=== PATIENT | female | born 1985 | race Hispanic/Latino ===

== ENCOUNTER 2018-01-15 00:02 | Inpatient (IN) | payer OTHER ==
[~2018-01-15] VITALS: Ht 165.1 cm; Wt 59.0 kg
--- NOTE | 2018-01-15 00:12 | ED PSYCHIATRIC COMPLAINT ---
See Addendum History of Present Illness General Chief Complaint: Psychiatric Related Complaint Stated Complaint: +ETOH/SI Source: patient, family Exam Limitations: intoxication Vital Signs & Intake/Output Vital Signs & Intake/Output Vital Signs Date Time Temp Pulse Resp B/P B/P Pulse O2 O2 Flow FiO2 Mean Ox Delivery Rate 01/16 0608 96.9 62 18 101/61 98 Room Air 01/16 0001 97.9 62 16 105/76 97 Room Air Room Air 01/15 2007 97.6 84 18 128/82 95 Room Air 01/15 1841 98.8 54 20 127/84 99 Room Air 01/15 1557 98.3 59 20 119/79 98 01/15 1116 98.2 67 20 118/83 99 Room Air 01/15 1106 98 Room Air 01/15 0828 98.4 76 18 138/88 98 Room Air ED Intake and Output 01/16 0000 01/15 1200 Intake Total Output Total 300 Balance -300 Output, Urine 300 Patient 130 lb Weight Weight Estimated Measurement Method Allergies Coded Allergies: No Known Allergies (01/15/18) Triage Note: PT BIBA FROM HOME C/O ETOH/+SI. PT ARRIVED LETHARGIC AND INTOXICATED. PER EMS PT WAS AT HOME TONIGHT DRINKING HENESSEY "2 LARGE CUPS" AND TOOK ABOUT 10 FIORICET PILLS. PT ARRIVED WITH A #20 IN [facility]. PT WANDED AND CHANGED INTO PAPER SCRUBS. BSG PRIOR TO ARRIVAL 109. PT A&0X1. Triage Nurses Notes Reviewed? yes Onset: Abrupt Duration: hour(s): Timing: recent history HPI: 01/15/18 1 AM 32-year-old female presents to the emergency department for alcohol depression and suicidal ideation. According to EMS and the patient's sister, her mother has recently . Tonight she had 2 tall alcoholic beverages and took an unknown quantity of Fioricet. She admits to suicidal ideation but she is obviously intoxicated. Poison control was consulted. (Oj Deluca DO) Past History Travel History Traveled to [place] past 21 day No Medical History Any Pertinent Medical History? see below for history Psychiatric: depression Surgical History Surgical History: non-contributory Family History Hx Contributory? No (Oj Deluca DO) Review of Systems Review of Systems Constitutional: Denies: fever. EENTM: Denies: visual changes. Respiratory: Denies: short of breath. Cardiovascular: Denies: chest pain. GI: Denies: abdominal pain. Genitourinary: Reports: no symptoms. Musculoskeletal: Reports: no symptoms. Skin: Reports: no symptoms. Neurological/Psychological: Reports: depressed. Hematologic/Endocrine: Reports: no symptoms. Immunologic/Allergic: Reports: no symptoms. (Oj Deluca DO) Physical Exam Physical Exam General Appearance: well developed/nourished, awake, anxious, moderate distress Head: atraumatic, normal appearance Eyes: Bilateral: normal appearance, PERRL, EOMI. Ears, Nose, Throat: normal pharynx, normal ENT inspection Neck: normal inspection, supple, full range of motion Respiratory: normal breath sounds, chest non-tender, no respiratory distress Cardiovascular: regular rate/rhythm Gastrointestinal: non-tender Extremities: normal range of motion Neurological/Psychiatric: anxious Appearance/Memory/Insight: disheveled Behavoir/Eye Contact/Speech: belligerent Thoughts/Hallucinations: no apparent hallucination Skin: intact, normal color, warm/dry SAD PERSONS SAD PERSONS Response Value Depression/Hopelessness? yes 2 Previous Attempts/Psych Care yes 1 Excessive Ethanol/Drug Use? yes 1 Rational Thinking Loss? yes 2 Single//? yes 1 Organized/Serious Attempt yes 2 Social Support? has support 0 Stated Future Intent? yes 2 Total 11 SAD PERSONS Done? yes (Oj Deluca DO) Progress Differential Diagnosis: drug intoxication, drug overdose, drug withdrawal, depression Plan of Care: Orders Procedure Date/time Status Continuous Observation Monitor 01/15 1900 Active Continuous Observation Monitor 01/15 1500 Active Restraint- Discontinue 01/15 1103 Active Continuous Observation Monitor 01/15 1100 Active Continuous Observation Monitor 01/15 0700 Active Initial ED EKG: NSR, nonspecific ST T wave chg Comments: 01/15/18 Labs were ordered. Sitter was ordered. Crisis consultation in the a.m. when sober; the patient will be signed out to Dr. Dalton at 7 AM, (Oj Deluca DO) Hand-Off Endorsed To: Oj Gore MD Endorsed Time: 1899 Pending: other (bed search) (Aaron Dalton MD) Comments: 01/15/2018 7:16:16 PM pt signed out to me by dr dalton at shift changeover. 01/16/2018 6:56:44 AM patient signed out to Dr. Dalton at shift changer fixer after an uneventful emergency department stay overnight (Sofía JAQUEZ,Oj Arauz) Departure Departure Disposition: STILL A PATIENT Condition: Stable Departure Forms: Customer Survey General Discharge Information Comments 01/15/18 5:30 AM 4 hour Tylenol level is normal Patient is pending evaluation by crisis The patient will be signed out to Dr. Dalton at 7 AM (Oj Deluca DO) Departure Clinical Impression Primary Impression: Depression Secondary Impressions: Alcohol abuse, Drug overdose (Aaron Dalton MD) (Oj Gore MD) Departure Departure Disposition: STILL A PATIENT Condition: Stable Departure Forms: Customer Survey General Discharge Information Comments 01/15/18 5:30 AM 4 hour Tylenol level is normal Patient is pending evaluation by crisis The patient will be signed out to Dr. Dalton at 7 AM (Oj Deluca DO) Departure Clinical Impression Primary Impression: Depression Secondary Impressions: Alcohol abuse, Drug overdose (Aaron Dalton MD)
[2018-01-15 01:05] LABS: ABSOLUTE BASOPHIL COUNT 0 /CUMM (0.0-0.2); ABSOLUTE EOSINOPHIL COUNT 0 /CUMM (0.0-0.7); ABSOLUTE GRANULOCYTE CT 2.2 /CUMM (1.4-6.5); ABSOLUTE LYMPH COUNT 1.5 /CUMM (1.2-3.4); ABSOLUTE MONOCYTE COUNT 0.4 /CUMM (0.10-0.60); BASOPHIL % 0.7 % (0.0-2.0); EOSINOPHIL % 0.3 % (0-5); GRANULOCYTE % 53.1 % (42.2-75.2); MEAN CORPUSCULAR HGB 29.5 PG (27.0-31.0); MEAN CORPUSCULAR HGB CONC 34.2 G/DL (33.0-37.0); MEAN CORPUSCULAR VOLUME 86.3 FL (81.0-99.0); MEAN PLATELET VOLUME 6.8 FL (7.4-10.4); PLATELET COUNT 402 /CUMM (130-400); WHITE BLOOD CELL COUNT 4.1 /CUMM (4.8-10.8)
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
[2018-01-16 16:32] VITALS: BP 118/71
[2018-01-16 16:58] VITALS: BP 118/71
[2018-01-16 22:07] VITALS: BP 106/62
[2018-01-17] VITALS (13 sets, daily range): BP systolic 102–134; BP diastolic 53–75
--- NOTE | 2018-01-17 13:05 | History & Physical ---
General Information and HPI MD Statement: I have seen and personally examined PASHA THOMSON and documented this H& P. The patient is a 32 year old F who presented with a patient stated chief complaint of "I want to be " "I just want to be with my mom again". Source of Information: patient, family, EMS Exam Limitations: unable to give history History of Present Illness: 32-year-old female was brought in by ambulance from home complaining of alcohol and positive suicidal ideations. She arrived lethargic and intoxicated. Per EMS the patient was at home drunk "2 large cups of Lili" and took approximately 10 Fioricet pills mother recently which might be part of the stressors. For all those reasons she is admitted for evaluation and treatment Allergies/Medications Allergies: Coded Allergies: No Known Allergies (01/15/18) Compliance With Home Meds: UNKNOWN Past History Travel History Traveled to [place] past 21 day No Medical History Neurological: NONE EENT: NONE Cardiovascular: NONE Respiratory: NONE Gastrointestinal: NONE Hepatic: NONE Renal: NONE Musculoskeletal: NONE Psychiatric: depression Endocrine: NONE Blood Disorders: NONE Cancer(s): NONE DIVER PUMPER/Reproductive: NONE Isolation History: Standard Surgical History Surgical History: non-contributory Past Family/Social History Psychosocial History ETOH Use: heavy use Review of Systems Review of Systems Constitutional: Reports: see HPI. Exam & Diagnostic Data Last 24 Hrs of Vital Signs/I&O Vital Signs Date Time Temp Pulse Resp B/P B/P Pulse O2 O2 Flow FiO2 Mean Ox Delivery Rate 01/17 1229 75 124/70 01/17 1217 75 124/70 / 0803 83 122/71 / 0801 97.1 83 122/71 07/03 0534 64 114/63 07/03 0302 60 102/53 07/03 0056 91 102/74 07/ 2207 70 106/62 07/ 1658 97.8 76 118/71 07/02 1632 97.8 76 118/71 01/16 1537 76 18 118/80 96 Room Air Intake & Output 01/17 1600 07 0800 07 0000 Intake Total Output Total Balance Patient 130 lb Weight Physical Exam General Appearance Alert, Oriented X3, Cooperative, No Acute Distress Skin No Rashes, No Breakdown, A tattoo in the upper chest. HEENT PERRLA, EOMI, Mucous Membr. moist/pink Neck Supple, No JVD, No thryomegaly, +2 Carotid Pulse wo Bruit, No LAD Lymphatic Axillary nl, Cervical nl Cardiovascular Regular Rate, No Murmurs Lungs Clear to Auscultation, Normal Air Movement Abdomen Normal Bowel Sounds, Soft, No Tenderness Neurological Exam Findings: Normal Gait, Normal Speech, Strength at 5/5 X4 Ext, Normal Tone, Sensation Intact, Cranial Nerves 3-12 NL, Reflexes 2+ Cranial Nerves II through XII: Intact Extremities No Cyanosis, No Edema, Normal Pulses Vascular Normal Pulses, Pulses Symmetrical Last 24 Hrs of Labs/Balwinder: Laboratory Tests 01/15/18 0425: Total Bilirubin 0.3, Direct Bilirubin 0.1, AST 18, ALT 25, Alkaline Phosphatase 64, Total Protein 6.5, Albumin 3.2 L, Triglycerides 74, Cholesterol 136, LDL Cholesterol, Calc 76, HDL Cholesterol 46, Cholesterol/HDL Ratio 3, TSH &T3 &Free T4 Intrp 1.220, Acetaminophen 22.0 01/15/18 0055: Anion Gap 13, Estimated GFR > 60, BUN/Creatinine Ratio 15.0, Glucose 87, Hemoglobin A1c 5.1, Calcium 8.9, Total Bilirubin 0.4, AST 21, ALT 26, Alkaline Phosphatase 74, Total Protein 6.9, Albumin 3.4 L, Globulin 3.5, Albumin/ Globulin Ratio 1.0 L, Total Beta HCG NEGATIVE, CBC w Diff NO MAN DIFF REQ, RBC 4.40, MCV 86.3, MCH 29.5, MCHC 34.2, RDW 13.0, MPV 6.8 L, Gran % 53.1, Lymphocytes % 37.1, Monocytes % 8.8, Eosinophils % 0.3, Basophils % 0.7, Absolute Granulocytes 2.2, Absolute Lymphocytes 1.5, Absolute Monocytes 0.4, Absolute Eosinophils 0, Absolute Basophils 0, Salicylates < 1.0, Acetaminophen 55.0 *H, Serum Alcohol 92.0 01/15/18 0034: Urine Opiates Screen < 100, Methadone Screen < 40, Barbiturate Screen > 800 H, Ur Phencyclidine Scrn < 6.00, Amphetamines Screen < 100, U Benzodiazepines Scrn < 85, Urine Cocaine Screen < 50, Urine Cannabis Screen 26.40 Assessment/Plan As Ranked By This Provider Problem List: 1. Depression 2. Drug overdose 3. Alcohol abuse Miscellaneous Miscellaneous Documentation Attending Case Discussed With: Kervin Steel MD Primary Care Physician: Patient Has No Primary Care Patient sees these Specialists Psychiatry Level of Patient Care: Jamie Consults Needed: Consulting Specialty: Psychiatry Consulting Physician: Dr Steel Reason for Consult: depression, SI, alcohol use.
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
--- NOTE | 2018-01-17 16:48 | SOCIAL WORKER PROG NOTE PSYCH ---
Social Work Progress Note Progress Note Yari was very tearful today. She is struggling to understand why God put her on this Earth and why she is still here. She reports lots of stressors that led to her suicide attempt. She feels that he 3 children would be better off without her and that she's useless. She doesn't have any hope left or see options to how she may get out of her current situation. She can't afford her rent, she is struggling to find daycare for her 3 children (11,8,7). She reports her Sisters help her, but she is still struggling. One younger sister lives with her. She also recently experienced the passing of her Mother (not biological). She reported that she has been drinking for many years to numb herself. She acknowledged struggling with depression and other self harm behaviors in the past. She has not gotten treatment and hasn't told anyone in the past that she tried to kill herself. She said she drinks a bottle a wine a night or hard liquor. There seems to be alot of financial stress waying on her currently. She said she can't afford insurance through [employer] and she was denied [facility] a few months ago. They said she made too much money. I told her that I could see if anything could be done to help her with this process and I would be in touch with our business office. Without insurance I am not sure how she will afford tx at aftercare. Encouraged her to focus on her strength's a resiliency at this time.
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
[2018-01-18] VITALS (12 sets, daily range): BP systolic 107–129; BP diastolic 45–86
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
[2018-01-19] VITALS (10 sets, daily range): BP systolic 101–125; BP diastolic 63–74
--- NOTE | 2018-01-19 15:07 | CP SOUTH PROGRESS NOTE PSYCH ---
Psych (Inpt) Progress Note Progress Note Include the following elements, when applicable: Involvement in the active treatment of the patient with behavioral observations of the patient and the patient's response to the treatment. Review of the ongoing treatment process in the context of the treatment plan. Indication of how multi-disciplinary staff members are carrying out the treatment plan. Plans for future interventions and recommendations for revision of the treatment plan. Liaison with other physicians/providers. Progress Note: Dr. Espinoza's note reviewed. Case and treatment plan discussed in team meeting. Staff reports that the patient is denying suicidal ideation. Interactive with peers. Going to groups. CIWA scores are low so we will change CIWA to every 4 hours while awake. Patient seen at 10:58 AM with medical student. Patient was in group prior to meeting with us in office. Reports doing well. Asking about discharge date. Disappointed that I informed her we are planning for Tuesday. Affect is calm and euthymic. Reports acute stressor was breakup on Tuesday with boyfriend of 5 years, Jadiel. States she felt really sad and lonely after the breakup. Reports now she 100% she would not think of hurting herself. Reports mood is good, actually. Reports she had a good night's sleep last night. Rates sad mood 1/10 and anxiety 0/10. Denies feeling hopeless anymore. Denies feeling helpless or worthless. She was feeling guilty but not now. Denies active and passive suicidal ideation. Denies homicidal ideation. Denies auditory and visual hallucinations and paranoid ideation. Describes appetite as eating like a piggy. States she is gaining weight. Energy is pretty good. Tolerating Lexapro but had nausea yesterday and this morning but it cleared. Denies alcohol withdrawal symptoms at this time. IMPRESSION: Slow progress. Continue present treatment plan. We will try to arrange a family meeting. Anticipate likely discharge on Tuesday. We will likely refer patient to [facility] or to [facility] [place].
--- NOTE | 2018-01-19 15:52 | SOCIAL WORKER PROG NOTE PSYCH ---
Social Work Progress Note Progress Note Yari reported feeling alot better today. Less depressed and more hopeful about things. She feels that she turned a corner after experiencing a dream the other night. She described the dream to me, which ultimately ended with a figure in wings saving her. She believes it was a sign from God and that she will always have the support of God. She described her attempt as "selfish", stating she wasn't thinking of her children. She reports having talked with both of her sisters and her ex- in the last couple of days. She feels supported by family and is willing to have a family meeting. She signed a release for both of her sisters. She talked about her ex- and how she has always been empathic or sympathetic to his financial needs and so she never pushed for formal child support. She is reconsidering that choice and is looking to file. She feels she needs to look out for herself and her children. She is hoping she hasn't lost her job at [employer]. She said her Sister has kept in touch with them. I told her we could provide a letter stating she was in the hospital. She primarily works during the day and would be open to IOP, but we need to get past the barrier of not having insurance. She said her kids got approved for [employer], but she didn't. She said she has had state insurance in [place] in the past so she wasn't sure why she wasn't approved. I told her I would follow up with the business office here to see how we might help. Talked about d/c for Tuesday.\\ Called Yoselin ext. [phone] in the business office. Explained the insurance issues. She said she would see if Laya could help her apply, but she doesn't know if she will be in tomorrow. Called Tacho Calhoun Yari's Sister and asked her to come in for a family meeting. She said tomorrow would be good and that she would call her Sister Jyoti to see what works for her and get back to me. They will come in for 11: 45a.
--- NOTE | 2018-01-19 16:50 | SOCIAL WORKER PROG NOTE PSYCH ---
Social Work Progress Note Progress Note The services requested require additional review. You will be contacted regarding the status of this request if further information is needed. An authorization decision will be made within the required timeframes and details of that decision may be found under the member's authorization history. Member Name Member ID Member Subscriber Name Subscriber ID PASHA MAK [id number] PASHA MAK [id number] Pended Authorization # Client Authorization # Type of Request [id number] CONCURRENT Date of Admission/ Start of Services Requested From Submission Date 01/16/2018 01/19/2018 01/19/2018 Level of Service Type of Service Level of Care Type of Care INPATIENT/HLOC [facility] - Inpatient Hospital Reason Code P76 Provider Name & Address Provider ID Provider Alternate ID NPI # for Authorization IMELDA READ [id number] [address] [place] [id number] Message P76 Attached Documents There are no documents attached with this Authorization Request Document Title Document Description Authorization Printing & Downloading Options: (For the best print results, please print in 'Landscape' format) Print the Results page (this page) Print the entire Authorization Request Download the entire Authorization Request Return to the [employer] homepage
[2018-01-20] VITALS (8 sets, daily range): BP systolic 111–124; BP diastolic 52–77
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
--- NOTE | 2018-01-20 13:44 | CP SOUTH PROGRESS NOTE PSYCH ---
Psych (Inpt) Progress Note Progress Note Include the following elements, when applicable: Involvement in the active treatment of the patient with behavioral observations of the patient and the patient's response to the treatment. Review of the ongoing treatment process in the context of the treatment plan. Indication of how multi-disciplinary staff members are carrying out the treatment plan. Plans for future interventions and recommendations for revision of the treatment plan. Liaison with other physicians/providers. Progress Note: Case and treatment plan discussed in team meeting. Staff reports that the patient is denying suicidal ideation. Visible in the milieu. Family meeting was scheduled for 11:45 AM with 2 sisters. Patient seen at 10:43 AM. She was in group prior to meeting with me in office. Reports doing well. Affect is brighter, calm and euthymic. Reports that the medicine is working, making her feel better. Describes mood as "I feel calm." Rates sad mood and anxiety both 0/10. Denies feeling hopeless, stating that she feels a lot stronger. Denies feeling helpless. Denies feeling worthless or guilty. Denies active and passive suicidal ideation. Denies homicidal ideation. Denies auditory and visual halllucinations and paranoid ideation. Reports she slept well last night with use of trazodone. Describes appetite as eating a lot. She was advised to watch her weight and to follow a healthy diet and exercise program while on her medication. Energy is described as "just calm at the moment." States that she can't do much here. She experienced a stomachache last night and took an antacid. Tolerating medications now and denies a stomach problem this morning. Reports ongoing chronic pain at left knee. This can be addressed on an outpatient basis. I attended family meeting with patient, sisters and psychologist social. Patient's and family's questions were addressed. IMPRESSION: Slow progress. Continue present treatment plan. Anticipate discharge on Tuesday to home and sister with referral to [facility] or to [facility].
--- NOTE | 2018-01-20 14:50 | RADIOLOGY REPORT ---
EXAMINATION: XR KNEE, LEFT CLINICAL INFORMATION: 32-year-old female with left knee pain, swelling. COMPARISON: None. TECHNIQUE: Four views of the left knee. FINDINGS: The bony alignment is intact. The cortices are intact. Mild decreased joint space is noted at the medial compartment. There is no joint effusion present. No focal osseous abnormalities. The soft tissues are unremarkable. IMPRESSION: Mild osteoarthrosis at the medial compartment of the left knee.
[2018-01-21 08:33] VITALS: BP 112/65
[2018-01-21 08:34] VITALS: BP 112/65
--- NOTE | 2018-01-21 09:56 | CP SOUTH PROGRESS NOTE PSYCH ---
Psych (Inpt) Progress Note Progress Note Vital Signs Date Time Temp Pulse Resp B/P B/P Pulse O2 O2 Flow FiO2 01/21 1203 73 102/63 01/21 0834 97.1 69 112/65 01/21 0833 97.1 69 112/65 01/21 2000 98.3 67 124/77 01/20 195 98.3 67 124/77 01/20 1540 72 120/64 01/20 1539 72 120/64 No labs in past 24 hours I reviewed patient's record including Kervin Steel MD's notes Reports doing well. Describes mood as "good' affect is bright, Denied anxiety/feels calm Denies feeling hopeless, Denies feeling helpless. Denies feeling worthless Denies wishing or suicidal ideation. Denies homicidal ideation. Denies auditory and visual halllucinations There were no delusions or paranoid ideation. IMPRESSION: 52-year-old who seems to be doing much better and ready for discharge on Tuesday she reported that her mood is good and she looked in very good spirits. Treatment plan update: Continue same medications Anticipate discharge on Tuesday to home and sister with referral to IOP or to [facility].
[2018-01-21 12:03] VITALS: BP 102/63
[2018-01-21 15:48] VITALS: BP 112/62
[2018-01-21 19:15] VITALS: BP 121/68
[2018-01-22 07:37] VITALS: BP 119/73
--- NOTE | 2018-01-22 08:18 | CP SOUTH PROGRESS NOTE PSYCH ---
Psych (Inpt) Progress Note Progress Note Vital Signs Date Time Temp Pulse Resp B/P B/P Pulse O2 O2 Flow FiO2 Mean Ox Delivery Rate 01/22 0737 96.9 75 119/73 01/21 1915 98.8 74 121/68 01/21 1548 65 112/62 No labs in past 24 hours Mental status update: Reports doing well. Describes mood as "good' affect is bright, Denied anxiety/feels calm Denies feeling hopeless, denies feeling helpless, denies feeling worthless, and denies wishing or suicidal ideation. Denies homicidal ideation. Denies auditory and visual halllucinations There were no delusions or paranoid ideation. Assessment: 52-year-old who seems to be doing much better and ready for discharge on Tuesday she reported that her mood is good and she looked in very good spirits. Treatment plan update: Continue same medications Anticipate discharge on Tuesday to home and sister with referral to IOP at [facility] [place].
[2018-01-22 12:19] VITALS: BP 137/68
[2018-01-22 16:01] VITALS: BP 130/75
[2018-01-22 19:33] VITALS: BP 122/81
[2018-01-23 07:56] VITALS: BP 103/30
--- NOTE | 2018-01-23 08:51 | CP SOUTH PROGRESS NOTE PSYCH ---
Psych (Inpt) Progress Note Progress Note error Mental status update: Reports doing well. Describes mood as "good' affect is bright, Denied anxiety/feels calm Denies feeling hopeless, denies feeling helpless, denies feeling worthless, and denies wishing or suicidal ideation. Denies homicidal ideation. Denies auditory and visual halllucinations There were no delusions or paranoid ideation. Assessment: 52-year-old who seems to be doing much better and ready for discharge on Tuesday she reported that her mood is good and she looked in very good spirits. Treatment plan update: Continue same medications Anticipate discharge on Tuesday to home and sister with referral to IOP at [facility].
--- NOTE | 2018-01-23 10:40 | SOCIAL WORKER PROG NOTE PSYCH ---
Social Work Progress Note Progress Note Called [facility] to schedule Yari a primary care appt. She can see Christina Chavez ALEX on February 27 at 2pm at their [facility]. location. Scheduled a 1:15pm intake today for [facility]. Met with Yari who was calm and smiling this morning. She reported feeling very nervous this morning about going home. No negative thoughts assoicated, just anticipatory anxiety. She knows she has alot of work ahead of her. She talked about how a bad experience (attempting suicide) has led her to a postive experience. From being here she sees that her life is not as bad as others. She feels ready to make better choices for herself and her children. She stated she is "grateful" that she is still alive and didn't . Reviewed her follow up appts. with her. She will call her Sister for a ride home today. She will require free indegent meds from the pharmacy before she leaves today, due to her insurance not being active.
[2018-01-23] MEDS ORDERED: LEXAPRO10 M1 PO (10:55)
[2018-01-23] MEDS ORDERED: TRAZODONE HCL100 M1 PO (10:57)
[2018-01-23] MEDS ORDERED: GABAPENTIN300 M2 PO (10:57)
--- NOTE | 2018-01-23 11:49 | Patient Discharge Instructions ---
Psych Discharge Inst General Discharge Information Reason for Admission: Intentional OD with 15-20 Fioricet with alcohol in the context of multiple stressors, acute and chronic. Psy Discharge Primary Diag+ Estuardo depr rec severe Psy Discharge Secondary Diag+ Alcohol use disorder PTSD Summary Tests/Major Procedures Lab ALT 25 U/L 01/15/18 0425 AST 18 U/L 01/15/18 0425 Albumin 3.2 g/dL L 01/15/18 042 Albumin/Globulin Ratio 1.0 % L 01/15/18 005 BUN 9 mg/dL 01/15/18 0055 Carbon Dioxide 23 mmol/L 01/15/18 0055 Chloride 109 mmol/L H 01/15/18 005 Creatinine 0.6 mg/dL 01/15/18 005 Estimated GFR > 60 ml/min 01/15/18 005 Glucose 87 mg/dL 01/15/18 005 Hemoglobin A1c 5.1 % 01/15/18 0055 Potassium 3.5 mmol/L 01/15/18 0055 Sodium 146 mmol/L H 01/15/18 0055 TSH &T3 &Free T4 Intrp 1.220 uIU/mL 01/15/18 0425 Total Beta HCG NEGATIVE 01/15/18 005 Hct 38.0 % 01/15/18 005 Hgb 13.0 G/DL 01/15/18 005 MPV 6.8 FL L 01/15/18 005 Plt Count 402 /CUMM H 01/15/18 0055 WBC 4.1 /CUMM L 01/15/18 0055 Acetaminophen 55.0 ug/mL*H 01/15/18 0055 Acetaminophen 22.0 ug/mL 01/15/18 0425 Barbiturate Screen > 800 NG/ML H 01/15/18 0034 Serum Alcohol 92.0 MG/DL 01/15/18 0055 Urine Cannabis Screen 26.40 NG/ML 01/15/18 0034 SERVICE DATE: 01/20/18- EXAM TYPE: RAD - XRY-KNEE COMPLETE LEFT EXAMINATION: XR KNEE, LEFT CLINICAL INFORMATION: 32-year-old female with left knee pain, swelling. COMPARISON: None. TECHNIQUE: Four views of the left knee. FINDINGS: The bony alignment is intact. The cortices are intact. Mild decreased joint space is noted at the medial compartment. There is no joint effusion present. No focal osseous abnormalities. The soft tissues are unremarkable. IMPRESSION: Mild osteoarthrosis at the medial compartment of the left knee. EKG 01/15/18 showed sinus rhythm @ 65, borderline T abnormalities, anterior leads, no previous tracing, borderline ECG, QT 444, QTc 462. Studies Pending at DC: None. Patient Instructions Contact Information Your Psychiatrist on [facility] was Kervin Steel MD * If you are experiencing an emergency related to this hospitalization, please call [phone] to contact the treating psychiatrist or the psychiatrist-on- call. * To Request a copy of your medical records, please contact the Medical Records Department at [phone]. * To request results of studies pending at the time of discharge, please call [phone]. * Continue your Medications until directed to stop by your Healthcare provider. General Medication Information Please continue to take your new medications and your continued home medications , unless otherwise indicated on your discharge medication list, or unless directed by your MD or RECEIVING LEAD to stop them. Special Instructions Diet Regular Activity Normal Other Inst/Recommendations Stay C&S. See PCP about knee pain, abnormal labs and borderline EKG. - Tobacco Use Treatment Offered Post DC Medications Offered: Not Applicable Post DC Tobacco Treatment Plan: Not Applicable - EtOH/Drug Use D/O Treatment Offered Post DC Medications Offered: Med Not Indicated for D/O Post DC EtOH/SubAbuse TX Plan: [facility] SubAbuse/Dual IOP Program Appt Date: 01/23/18 Program Appt Time: 1315 Metabolic Screening ([x]) Not Applicable, patient not on a neuroleptic. OR () Patient on a neuroleptic(s) . Enter below results for Hemoglobin A1C, and lipid panel if obtained during the last 365 days. BMI: 21.600 Blood Pressure: 103/30 Laboratory Results From [facility] (If applicable): Advance Directives Does the Patient have Medical Advance Directives Yes/Copy not provided Does Pt have Psychiatric Advance Directives? No/Per pt req info provid Does Patient have a Designated Surrogate Decision Maker: Yes Information About Psychiatric Advance Directives Provided? Refused Discharge Plan Post Hospital Treatment Plan: Returning to home and sister.
--- NOTE | 2018-01-23 15:49 | SOCIAL WORKER PROG NOTE PSYCH ---
Social Work Progress Note Faxed Referral(s) Referred To: [facility] Transition of Care Documents sent: Health Summary Faxed to: [facility] Fax #: [phone] Faxed by: Halley Burdick Date faxed: 01/23/18 Time Faxed: [phone]
--- NOTE | 2018-01-23 16:12 | CP SOUTH PROGRESS NOTE PSYCH ---
Psych (Inpt) Progress Note Progress Note Include the following elements, when applicable: Involvement in the active treatment of the patient with behavioral observations of the patient and the patient's response to the treatment. Review of the ongoing treatment process in the context of the treatment plan. Indication of how multi-disciplinary staff members are carrying out the treatment plan. Plans for future interventions and recommendations for revision of the treatment plan. Liaison with other physicians/providers. Progress Note: Dr. Frazier's notes reviewed. Case and treatment plan discussed in team meeting. Staff reports that the patient is denying suicidal ideation. Doing well. Looking forward to discharge today. Smiling and more hopeful. Has IOP intake at 1:15 PM. Patient seen at 11:52 a.m. Reports feeling well but "just really anxious about leaving and going back to work and all that stuff." Affect is calm and euthymic. Mood: anxious at ~4/10. Sad 0/10. Denies feeling hopeless, worthless or guilty. Does feel helpless. Denies active and passive SI, HI, AH, VH and PI. Reports sleeping well. Appetite is normal. Energy: "I feel good." Tolerating medications well but reports that her medications make her really thirsty. Feels ready and safe for discharge. IMPRESSION: Condition improved. Okay for discharge today to IOP intake and return home.
--- NOTE | 2018-01-23 16:16 | DISCHARGE SUMMARY REPORT-PSYCH ---
Visit Information Visit Dates/Diagnosis' Admission Date: 01/16/18 Discharge Date: 01/23/18 Reason for Admission: Intentional OD with 15-20 Fioricet with alcohol in the context of multiple stressors, acute and chronic. Psy Discharge Primary Diag: Estuardo depr rec severe Psy Discharge Secondary Diag: Alcohol use disorder PTSD Hospital Course Significant Lab Findings: Lab ALT 25 U/L 01/15/18 0425 AST 18 U/L 01/15/18 0425 Albumin 3.2 g/dL L 01/15/18 0425 Albumin/Globulin Ratio 1.0 % L 01/15/18 0055 BUN 9 mg/dL 01/15/18 0055 Carbon Dioxide 23 mmol/L 01/15/18 0055 Chloride 109 mmol/L H 01/15/18 0055 Creatinine 0.6 mg/dL 01/15/18 0055 Estimated GFR > 60 ml/min 01/15/18 0055 Glucose 87 mg/dL 01/15/18 0055 Hemoglobin A1c 5.1 % 01/15/18 0055 Potassium 3.5 mmol/L 01/15/18 0055 Sodium 146 mmol/L H 01/15/18 0055 TSH &T3 &Free T4 Intrp 1.220 uIU/mL 01/15/18 0425 Total Beta HCG NEGATIVE 01/15/18 0055 Hct 38.0 % 01/15/18 0055 Hgb 13.0 G/DL 01/15/18 0055 MPV 6.8 FL L 01/15/18 0055 Plt Count 402 /CUMM H 01/15/18 0055 WBC 4.1 /CUMM L 01/15/18 0055 Acetaminophen 55.0 ug/mL*H 01/15/18 0055 Acetaminophen 22.0 ug/mL 01/15/18 0425 Barbiturate Screen > 800 NG/ML H 01/15/18 0034 Serum Alcohol 92.0 MG/DL 01/15/18 0055 Urine Cannabis Screen 26.40 NG/ML 01/15/18 0034 SERVICE DATE: 01/20/18- EXAM TYPE: RAD - XRY-KNEE COMPLETE LEFT EXAMINATION: XR KNEE, LEFT CLINICAL INFORMATION: 32-year-old female with left knee pain, swelling. COMPARISON: None. TECHNIQUE: Four views of the left knee. FINDINGS: The bony alignment is intact. The cortices are intact. Mild decreased joint space is noted at the medial compartment. There is no joint effusion present. No focal osseous abnormalities. The soft tissues are unremarkable. IMPRESSION: Mild osteoarthrosis at the medial compartment of the left knee. EKG 01/15/18 showed sinus rhythm @ 65, borderline T abnormalities, anterior leads, no previous tracing, borderline ECG, QT 444, QTc 462. Course Complications: None. Consultations: The patient was seen by Dr. Reji Copeland for admission history and physical. Please refer to his note for additional information. Allergies: Coded Allergies: No Known Allergies (01/15/18) Hospital Course/TX Response: The patient was monitored on the unit for safety, alcohol withdrawal and mood disorder. She participated in multimodal treatments on the unit. The patient had an uneventful detox. She was treated with Lexapro for depression with good response. The patient has demonstrated improvement in mood and affect. Suicidal ideation has remitted. Progress note from date of discharge, 01/23/18: "Dr. Frazier's notes reviewed. Case and treatment plan discussed in team meeting. Staff reports that the patient is denying suicidal ideation. Doing well. Looking forward to discharge today. Smiling and more hopeful. Has IOP intake at 1:15 PM. Patient seen at 11:52 a.m. Reports feeling well but "just really anxious about leaving and going back to work and all that stuff." Affect is calm and euthymic. Mood: anxious at ~4/10. Sad 0/10. Denies feeling hopeless, worthless or guilty. Does feel helpless. Denies active and passive SI, HI, AH, VH and PI. Reports sleeping well. Appetite is normal. Energy: "I feel good." Tolerating medications well but reports that her medications make her really thirsty. Feels ready and safe for discharge. IMPRESSION: Condition improved. Okay for discharge today to IOP intake and return home." Discharge HBIPS - Tobacco Use Treatment Offered Post DC Medications Offered: Not Applicable Post DC Tobacco Treatment Plan: Not Applicable - EtOH/Drug Use D/O Treatment Offered Post DC Medications Offered: Med Not Indicated for D/O Post DC EtOH/SubAbuse [place] Plan: [facility] SubAbuse/Dual IOP Program Appt Date: 01/23/18 Program Appt Time: 1315 Metabolic Screening - Screen if on a Neuroleptic Medication - Metabolic screening should include: - Blood Pressure, BMI, Glucose or Hgb A1c, & a - Lipid profile from within the past 365 days. Metabolic Screening ([x]) Not Applicable, patient not on a neuroleptic. OR () Patient on a neuroleptic(s) . Enter below results for Hemoglobin A1C, and lipid panel if obtained during the last 365 days. BMI: 21.600 Blood Pressure: 103/30 Laboratory Results From [facility] (If applicable): Discharge Instructions General Discharge Information Multiple Neuroleptics: ([x]) Not Applicable OR Document below three failed attempts at monotherapy, or a plan to taper to monotherapy, or augmentation of Clozapine. () Discharge Diet Regular Discharge Activity Normal DC Disposition: Returning to home and sister and to work. Referral to [facility] today. Referrals Ordered Referrals Provider Referral 02/27/18 For Groups: [facility] Multiple Locations [facility] Tuesday02/27/18 1:50pm Jitendra Chavez [employer] [address] [place] [address] INTENSIVE OUTPT PSY-SUBSTANCE 01/23/18 [address] [place] [address] [facility] Program for mental health and substance use 01/23/18 intake 1:15pm [address] [place] [address] Prescriptions Start taking the following new medications: Escitalopram Oxalate (Lexapro) 10 MG TABLET 1 Tablet ORAL DAILY Qty = 14 No Refills Comments: Last Taken:01/23/18 Time:0741 Gabapentin (Gabapentin) 300 MG CAPSULE 2 Capsule ORAL EVERY SIX HOURS NEEDED as needed for ANXIETY/AGITATION/ INSOMNIA Qty = 42 No Refills Comments: Last Taken:01/23/18 Time:0855 Trazodone HCl (Trazodone HCl) 100 MG TABLET 1 Tablet ORAL AT BEDTIME Qty = 14 No Refills Comments: Last Taken:01/22/18 Time:2138 Other Inst/Recommendations Stay C&S. See PCP about knee pain, abnormal labs and borderline EKG. Studies Pending at Discharge None. Copies To: Intensive Outpt Psy-Substance
== END 2018-01-23 13:17 | DRG 751 ==
LOC: ERH 00:02 → CP SOUTH 01-16 12:31 → ERHI 01-16 12:31 → ENTRNSPT 01-16 16:34 → EDTRNSPT 01-16 16:41 → EDTRNSPTSTS 01-16 16:41 → CP SOUTH 01-16 16:52 → CMPTRNSPT 01-16 16:54 → CP SOUTH 01-18 10:28
PROVIDERS: Emergency Medicine
DX: F33.9 Major depressive disorder, recurrent, unspecified (principal); F43.10 Post-traumatic stress disorder, unspecified; F10.10 Alcohol abuse, uncomplicated
CPT/HCPCS: 73562-LT; 80307; 93005; 93010; G0463; G0480; J3490